=== PATIENT | female | born 1955 | race Caucasian/White ===

== ENCOUNTER → 2017-07-25 | Outpatient (CLI) | payer BC ==
--- NOTE | 2017-07-26 12:19 | Diagnostic Imaging Report ---
Bilateral screening mammogram 2D views with tomosynthesis. The current study was also evaluated with a Computer Aided Detection (CAD) system. INDICATION: Screening. No current complaints stated on the questionnaire. COMPARISON: 07/20/15 FINDINGS: The breasts are composed of heterogeneously dense parenchyma which may decrease mammographic sensitivity. Benign-appearing calcifications are seen. Allowing for technique and positional differences, no suspicious change is seen. IMPRESSION: Dense breasts with no definite change. ACR BI-RADS Category 2: Benign findings. Result letter will be mailed to the patient. Note: At least 10% of breast cancer is not imaged by mammography. Dictated by: Dictated on workstation # [id number]
== END ==
LOC: RAD 10:25
PROVIDERS: ATTEND Nurse Practitioner Family
DX: Z12.31 Encounter for screening mammogram for malignant neoplasm of breast (principal)

== ENCOUNTER 2017-09-03 05:34 | Outpatient (CLI) | payer BC ==
[~2017-09-03] VITALS: Ht 170.2 cm; Wt 88.5 kg
== END 2017-09-03 12:11 ==
LOC: PREOP 05:34
PROVIDERS: ATTEND Surgery
DX: Z01.818 Encounter for other preprocedural examination (principal); Z12.11 Encounter for screening for malignant neoplasm of colon

== ENCOUNTER 2017-09-10 07:33 | Day surgery (SDC) | payer BC ==
[~2017-09-10] VITALS: Ht 170.2 cm; Wt 88.5 kg
[2017-09-10] MEDS ORDERED: NS IV 500 ML 500 ML IV PRN (07:41)
[2017-09-10] MEDS ORDERED: NS IV 500 ML 500 ML ONE (07:51)
[2017-09-10 08:03] VITALS: BP 120/66
[2017-09-10] MEDS ORDERED: MIDAZOLAM 2 MG/2 ML (VERSED) VIAL ONE ×4 (08:53→09:19)
[2017-09-10] MEDS ORDERED: fentaNYL INJECTION 100 MCG/2 ML AMP ONE (08:54)
[2017-09-10] MEDS: fentaNYL INJECTION 100 MCG/2 ML AMP IVP PRN ×2 (09:03→09:15)
[2017-09-10] MEDS: MIDAZOLAM 2 MG/2 ML (VERSED) VIAL IVP PRN ×4 (09:05→09:25)
--- NOTE | 2017-09-10 09:34 | History & Physicial ---
History of Present Illness History of Present Illness Reason for visit/HPI to undergo screening colonoscopy. She reports a family history of polyps in her mother. Date of Admission 09/10/17 Date Seen by Provider: Sep 10, 2017 Time Seen by Provider: 08:45 I consulted on this patient on 09/10/17 09:30 Attending Physician Shahnaz Mae MD Admitting Physician Luann Liang MD Consult Allergies and Home Medications Allergies Coded Allergies: No Known Drug Allergies (Unverified , 09/03/17) Home Medications No Active Prescriptions or Reported Meds Past Qaestmu-Blsymz-Qbscbo Hx Patient Social History Marrital Status: Employed/Student: retired Alcohol Use: Occasionally Uses Number of Drinks Today: DD Alcohol Beverage of Choice: Rum Recreational Drug Use: No Smoking Status: Former Smoker Former Smoker, Quit: Sep 03, 1999 Recent Foreign Travel: No Contact w/other who traveled: No Recent Hopitalizations: No Seasonal Allergies Seasonal Allergies: No Surgeries No Respiratory No Cardiovascular No Heart Murmur Neurological No Genitourinary No Gastrointestinal No Endocrine History of Endocrine Disorders: No HEENT History of HEENT Disorders: No Cancer No Constitutional: no symptoms reported EENTM: no symptoms reported Respiratory: no symptoms reported Cardiovascular: no symptoms reported Gastrointestinal: no symptoms reported Genitourinary: no symptoms reported Musculoskeletal: no symptoms reported Skin: no symptoms reported Psychiatric/Neurological: No Symptoms Reported Physical Exam Vital Signs Vital Sign - Last 12Hours 09/10/17 08:03 Temp 98.2 Pulse 67 Resp 18 B/P (MAP) 120/66 (84) Pulse Ox 100 O2 Delivery Room Air Capillary Refill : General Appearance: No Apparent Distress HEENT: Normal ENT Inspection Neck: Normal Inspection Respiratory: Lungs Clear Cardiovascular: Regular Rate, Rhythm Gastrointestinal: Non Tender, Soft Rectal: Deferred Extremity: Normal Inspection Neurologic/Psychiatric: Alert, Oriented x3 Skin: Warm/Dry Assessment/Plan Assessment and Plan lady to undergo screening colonoscopy. Reviewed in detail. Iatrogenic perforation, post polypectomy bleeding etc. discussed thoroughly. Willing to proceed Problems: SHAHNAZ MAE MD Sep 10, 2017 9:34 am
--- NOTE | 2017-09-10 09:36 | Endo Procedure Record ---
Endo Procedure Report Date of Procedure Last Colonoscopy: Yes (unsure) Sep 10, 2017 Surgeon (s) SHAHNAZ MCKEON MD Post Procedure/Op Diagnosis Normal colonoscopy Procedure Performed Colonoscopy to cecum Description of Procedure Anesthesia Type: Conscious Sedation Specimen(s) collected/removed none Description of the Procedure indication for the procedure: This lady came in for screening colonoscopy. She reported a family history of polyps in her mother. Informed consent was obtained after reviewing the procedure in detail. Description of procedure: She was placed in left lateral decubitus position and her vital signs were monitored. Conscious sedation was achieved using Versed and fentanyl. Digital rectal examination was unremarkable. The colonoscope was then introduced into the rectum and advanced all the way up to cecum Scope was then withdrawn slowly and the mucosa examined in a systematic fashion. There was no abnormality She tolerated the procedure well and was taken back to the nursing area in a stable condition. Impression: Normal screening colonoscopy. Family history of polyps. Recommend repeating in Copies To: LUCY URBINA MD, XAVIER M MD Sep 10, 2017 9:36 am
--- NOTE | 2017-09-10 09:37 | Discharge Inst-Simple/Standard ---
Discharge Inst-Standard Discharge Medications New, Converted or Re-Newed RX: Other Patient Instructions/Follow Up Plan of Care/Instructions/FU: Repeat colonoscopy in 5 years Activity as Tolerated: Yes Discharge Diet: No Restrictions SHAHNAZ MCKEON MD Sep 10, 2017 9:37 am
[2017-09-10 09:50] VITALS: BP 147/72
[2017-09-10 10:20] VITALS: BP 132/60
== END 2017-09-10 10:25 | disposition home or self-care (01) ==
LOC: ENDO 07:33
PROVIDERS: ATTEND Surgery
DX: Z12.11 Encounter for screening for malignant neoplasm of colon (principal); Z83.71 Family history of colonic polyps; Z87.891 Personal history of nicotine dependence

== ENCOUNTER → 2018-08-15 | Outpatient (CLI) | payer BC ==
--- NOTE | 2018-08-16 20:53 | Diagnostic Imaging Report ---
INDICATION: Routine screening. COMPARISON: 07/25/2017 and 07/20/2015. TECHNIQUE: 2D and 3D bilateral screening mammography was performed with CAD. FINDINGS: Both breasts are heterogeneously dense, limiting the sensitivity of mammography. Numerous microcalcifications are identified in both breasts limiting the study but appear stable when compared with the prior exam. No discrete mass is identified. The axillae are unremarkable. IMPRESSION: No mammographic features suspicious for malignancy are identified. ACR BI-RADS Category 2: Benign findings. Result letter will be mailed to the patient. Note: At least 10% of breast cancer is not imaged by mammography. Dictated on workstation # [id number]
== END ==
LOC: RAD 14:12
PROVIDERS: ATTEND Nurse Practitioner Family
DX: Z12.31 Encounter for screening mammogram for malignant neoplasm of breast (principal)
CPT/HCPCS: 77067

== ENCOUNTER → 2019-09-16 | Outpatient (CLI) | payer BC ==
--- NOTE | 2019-09-16 13:19 | Diagnostic Imaging Report ---
INDICATION: Routine screening. COMPARISON: Comparison is made with prior mammograms from 08/15/2018 and 07/25/2017. 2-D and 3-D bilateral screening mammography was performed. The current study was also evaluated with a Computer Aided Detection (CAD) system. 3-D tomosynthesis was also performed and reviewed. FINDINGS: Both breasts remain heterogeneously dense, limiting the sensitivity of mammography. Benign parenchymal and vascular calcifications are identified bilaterally. No mass or malignant-appearing microcalcifications are seen. Axillae are unremarkable. IMPRESSION: No mammographic features suspicious for malignancy are identified. ACR BI-RADS Category 2: Benign findings. Result letter will be mailed to the patient. Note: At least 10% of breast cancer is not imaged by mammography. Dictated by: Dictated on workstation # [id number]
== END ==
LOC: RAD 10:29
PROVIDERS: ATTEND Nurse Practitioner Family
DX: Z12.31 Encounter for screening mammogram for malignant neoplasm of breast (principal)
CPT/HCPCS: 77067

== ENCOUNTER 2019-10-02 11:30 | Outpatient (RCR) | payer BC | END 2019-10-02 13:10 | disposition home or self-care (01) | PROVIDERS: ATTEND Nurse Practitioner | DX: M22.42 Chondromalacia patellae, left knee (principal); M25.462 Effusion, left knee ==

== ENCOUNTER → 2021-05-24 | Outpatient (CLI) | payer BC ==
--- NOTE | 2021-05-24 18:18 | Diagnostic Imaging Report ---
INDICATION: Routine screening. COMPARISON is made with prior mammograms 09/16/2019 and 08/15/2018. 2-D and 3-D bilateral screening mammography was performed with CAD. Both breasts are heterogeneously dense, limiting the sensitivity of mammography. There are benign parenchymal and vascular calcifications in both breasts. No mass or malignant-appearing microcalcifications are seen. The axillae are unremarkable. IMPRESSION: BI-RADS Category 2 No mammographic features suspicious for malignancy are identified. ACR BI-RADS Category 2: Benign findings. Result letter will be mailed to the patient. Note: At least 10% of breast cancer is not imaged by mammography. Dictated by: Dictated on workstation # [id number]
== END ==
LOC: RAD 13:30
PROVIDERS: ATTEND Family Medicine
DX: Z12.31 Encounter for screening mammogram for malignant neoplasm of breast (principal)
CPT/HCPCS: 77063; 77067

== ENCOUNTER 2021-06-09 05:41 | Outpatient (CLI) | payer BC ==
[~2021-06-09] VITALS: Ht 167.6 cm; Wt 104.4 kg
[2021-06-10] MEDS ORDERED: GLUC1CAP37 PO (11:11)
[2021-06-10] MEDS ORDERED: VIT1CAPS5 PO (11:11)
[2021-06-10] MEDS ORDERED: FOLI1TAB57 PO (11:11)
[2021-06-10] MEDS ORDERED: VITA1TAB42 PO (11:11)
== END 2021-06-10 11:24 | disposition home or self-care (01) ==
LOC: PREOP 05:41
PROVIDERS: ATTEND Surgery
DX: Z01.818 Encounter for other preprocedural examination (principal)

== ENCOUNTER 2021-06-16 10:07 | Day surgery (SDC) | payer BC, MEDICARE ==
[~2021-06-16] VITALS: Ht 167 cm; Wt 104.4 kg
[2021-06-16] VITALS (9 sets, daily range): BP systolic 126–148; BP diastolic 64–84
[~2021-06-16 10:07] MED LIST: FOLI1TAB57 PO; GLUC1CAP37 PO; VIT1CAPS5 PO; VITA1TAB42 PO
[2021-06-16] MEDS ORDERED: ceFAZolin 2 GM IV Premixed 50 ML ONE (10:13)
[2021-06-16] MEDS ORDERED: ONDANSETRON 4 MG/2 ML (SDV) Z0FRAN IVP PRN ×2 (10:30→12:30)
[2021-06-16] MEDS ORDERED: morphine INJ 10 MG/ML 1ML (SYR OR VIAL) IVP PRN (10:30)
[2021-06-16] MEDS ORDERED: HYDROcodone/APAP 5 MG/325 MG (LORTAB) TAB PO ONE (10:30)
[2021-06-16] MEDS ORDERED: ACETAMINOPHEN 325 MG TABLET PO PRN (10:30)
[2021-06-16] MEDS ORDERED: HYDR-3817 PO (10:31)
--- NOTE | 2021-06-16 10:31 | Discharge Inst-Surgical ---
D/C Lap Instructions-KIDO Reconcile Patient Problems Problems Reviewed?: Yes New, Converted, or Re-Newed RX: RX on Chart Follow Up Appt in 2 weeks Activity as tolerated No driving for 24 hours No driving while on pain medications Incentive Spirometry use every 2 hours while awake Regular Diet Symptoms to Report: Fever over 101 degree F, Nausea/Vomiting Infection Signs and Symptoms to report: Increased redness, Foul odor of wound, Increased drainage Bathing instructions: May shower Operative Area Clean/Dry; Keep incision clean/dry If any problems/questions: Contact your physician or go to Emergency Room LUCY GREWAL APRN Jun 16, 2021 10:31
--- NOTE | 2021-06-16 10:32 | Progress Note-Pre Operative ---
Pre-Operative Progress Note H&P Reviewed The H&P was reviewed, patient examined and no changes noted. Date Seen by Provider: Jun 16, 2021 Time Seen by Provider: 10:30 Date H&P Reviewed: Jun 16, 2021 Time H&P Reviewed: 10:25 Pre-Operative Diagnosis: Symptomatic left ankle cyst LUCY GREWAL APRN Jun 16, 2021 10:32
[2021-06-16] MEDS ORDERED: ceFAZolin 2 GM IV Premixed 50 ML IV ONE (10:45)
[2021-06-16] MEDS ORDERED: LACTATED RINGERS 1,000 ML IV PRN (10:45)
[2021-06-16] MEDS ORDERED: LIDOCAINE/EPI 1%-1:100,000 (XYLOCAINE) 20ML ONE (10:57)
[2021-06-16] MEDS ORDERED: ONDANSETRON 4 MG/2 ML (SDV) Z0FRAN ONE (11:03)
[2021-06-16] MEDS ORDERED: LIDOCAINE PF 2% 5 ML (XYLOCAINE) VIAL ONE (11:03)
[2021-06-16] MEDS ORDERED: SEVOFLURANE (ULTANE) 15 ML INHAL SOLN ONE ×2 (11:03→12:11)
[2021-06-16] MEDS ORDERED: proPOfol 200 MG/20 ML (DIPRIVAN) VIAL IV ONE (11:03)
[2021-06-16] MEDS ORDERED: fentaNYL INJ 100 MCG/2 ML AMP ONE (11:03)
[2021-06-16] MEDS ORDERED: MIDAZOLAM 2 MG/2 ML (VERSED) VIAL ONE (11:04)
--- NOTE | 2021-06-16 12:09 | Progress Note-Post Operative ---
Post-Operative Progess Note Surgeon (s)/Text Transcriber (s) Surgeon DEVI DOLL MD Text Transcriber: herson coppola TOOL ENGINEER Pre-Operative Diagnosis Symptomatic left ankle cyst Post-Operative Diagnosis left ankle subfascial mass(5x5cm) Procedure & Operative Findings Date of Procedure 06/16/21 Procedure Performed/Findings excision left anterior ankle subfascial mass. Anesthesia Type general LMA Estimated Blood Loss Estimated blood loss (mL): minimal Specimens/Packing Specimens Removed ankle mass DEVI DOLL MD Jun 16, 2021 12:09
[2021-06-16] MEDS ORDERED: MEPERIDINE (DEMEROL) INJ 50 MG/ML IVP ONE (12:30)
[2021-06-16] MEDS ORDERED: morphine INJ 10 MG/ML 1ML (SYR OR VIAL) IVP ONE (12:30)
[2021-06-16] MEDS ORDERED: fentaNYL INJ 100 MCG/2 ML AMP IVP ONE (12:30)
--- NOTE | 2021-06-16 13:35 | OPERATIVE REPORT ---
DATE OF SERVICE: 06/16/2021 ATTENDING PRIMARY CARE PHYSICIAN: Luann Liang MD PREOPERATIVE DIAGNOSIS: Left anterior ankle mass. POSTOPERATIVE DIAGNOSIS: Left anterior ankle mass, which was subfascial and approximately 5 x 5 cm in size. PROCEDURE: Excision of left anterior ankle subfascial mass, 5 x 5 cm in size. SURGEON: Devi Doll MD. LINEN CONTROLLER: Rm Maxwell APRN. ANESTHESIA: General laryngeal mask airway with local. ESTIMATED BLOOD LOSS: Minimal. FINDINGS: A large cystic lesion. DISPOSITION: The patient tolerated the procedure well. INDICATIONS: The patient is a 65-year-old female who has noticed a left anterior ankle mass several years ago; however, she states that this has grown substantially larger in size over time and has caused a significant amount of pain. Upon examination in the office, the lesion was large and painful to palpation; however, no overlying redness or erythema to indicate any infection. DESCRIPTION OF PROCEDURE: The patient was brought to the operating room, laid supine on the table. After adequate IV pain and sedative medications and general laryngeal mask airway intubation, the left foot and ankle were prepped and draped in standard surgical fashion. A 0.5% Marcaine with epinephrine was used to anesthetize overlying skin to the lesion and a transverse skin incision made using a 15 blade. The mass was identified, and it was well circumscribed and had both solid and cystic components to it. We then proceeded with circumferential dissection of the lesion using blunt dissection as well as electrocautery. The lesion was subfascial and overlying the anterior tendons. The tendons and vascular structures identified and spared throughout the process. The mass was then excised and sent to pathology. Good hemostasis was observed, and the subcutaneous tissue and fascia were then reapproximated using 3-0 Vicryl interrupted sutures. Skin was closed using 4-0 Prolene interrupted sutures. Wound was then cleaned and covered with gauze followed by Kerlix, followed by Felix wrap. The patient tolerated the procedure well. We will start IV normal pain medication as well as a clear liquid diet. When she is tolerating clears, has good pain control with oral pain medications, ambulating well, we will discharge her home. She will be instructed to do no heavy lifting or exertion for the next 2 weeks since she will have follow up in our office in that same timeframe. Job ID: [id number] DocumentID: [id number] Dictated Date: 06/16/2021 12:15:48 Costumer Assistant Date: 06/16/2021 13:33:57 Dictated By: DEVI DOLL MD
--- NOTE | 2021-06-16 14:17 | Anesthesia-General Post-Op ---
General Patient Condition Mental Status/LOC: Same as Preop Cardiovascular: Satisfactory Nausea/Vomiting: Absent Respiratory: Satisfactory Pain: Controlled Complications: Absent Post Op Complications Complications None Follow Up Care/Instructions Patient Instructions None needed. Anesthesia/Patient Condition Patient Condition Patient is doing well, no complaints, stable vital signs, no apparent adverse anesthesia problems. No complications reported per nursing. WES CASTELLON CRNA Jun 16, 2021 14:17
== END 2021-06-16 14:15 ==
LOC: SDC 10:07
PROVIDERS: ATTEND Surgery
DX: D36.13 Benign neoplasm of peripheral nerves and autonomic nervous system of lower limb, including hip (principal); E66.9 Obesity, unspecified; Z68.37 Body mass index [BMI] 37.0-37.9, adult; Z79.899 Other long term (current) drug therapy; Z80.8 Family history of malignant neoplasm of other organs or systems; Z80.41 Family history of malignant neoplasm of ovary; Z87.891 Personal history of nicotine dependence
CPT/HCPCS: 87081

== ENCOUNTER → 2022-06-30 | Outpatient (CLI) | payer BC ==
[~2022-06-30] MED LIST changes: +HYDR-3817 PO
--- NOTE | 2022-06-30 12:24 | Diagnostic Imaging Report ---
Indication: Routine screening. Comparison is made with prior mammogram 05/24/2021 and 09/16/2019. 2-D and 3-D bilateral screening mammography was performed with CAD. CAD is utilized. The current study was also evaluated with a Computer Aided Detection (CAD) system. Both breasts are heterogeneously dense, limiting the sensitivity of mammography. There are scattered benign parenchymal and vascular calcifications bilaterally. No mass or malignant-appearing microcalcifications are seen. Axillae are unremarkable. IMPRESSION: BI-RADS Category 2 No mammographic features suspicious for malignancy are identified. Dictated by: Dictated on workstation # [id number]
== END ==
LOC: RAD 08:45
PROVIDERS: ATTEND Family Medicine
DX: Z12.31 Encounter for screening mammogram for malignant neoplasm of breast (principal)
CPT/HCPCS: 77063; 77067